=== PATIENT | male | born 1980 | race Caucasian/White ===

== ENCOUNTER 2024-03-14 18:14 | Emergency (ER) | payer SELFPAY ==
[~2024-03-14] VITALS: Ht 182.9 cm; Wt 83.9 kg
[2024-03-14 18:21] VITALS: BP_SYST 144; PULSE 86; RESP 18; TEMP 98.7; O2SAT 98
[2024-03-14] MEDS: KETOROLAC TROMETHAMINE 60 MG/2 ML VIAL IM ONE (18:37)
[2024-03-14] MEDS ORDERED: IBUP-1971 PO (21:26)
[2024-03-14 21:48] VITALS: BP_SYST 114; PULSE 69; RESP 18; TEMP 98.7; O2SAT 99
== END 2024-03-14 21:45 | disposition home or self-care (01) ==
LOC: SED 18:14
DX: R10.31 Right lower quadrant pain (principal); R03.0 Elevated blood-pressure reading, without diagnosis of hypertension; V89.2XXA Person injured in unspecified motor-vehicle accident, traffic, initial encounter; Y93.89 Activity, other specified; Y92.89 Other specified places as the place of occurrence of the external cause; Y99.8 Other external cause status
CPT/HCPCS: 99283; 96372; J1885